=== PATIENT | male | born 1940 | race Caucasian/White ===

== ENCOUNTER 2024-04-17 11:17 | Day surgery (SDC) | payer MEDICARE, SELFPAY ==
[2024-04-17 11:41] VITALS: BP 148/78; PULSE 65; TEMP 36.2; O2SAT 98
[2024-04-17] MEDS: LIDOCAINE 2% JELLY 10 ML UR (15:12)
[2024-04-17 15:13] VITALS: BP 141/74; PULSE 59; O2SAT 99
[2024-04-17 15:15] VITALS: BP 140/81; PULSE 68; O2SAT 99
--- NOTE | 2024-04-17 15:16 | PM.URSON ---
Urology Surgery Operative Note Operative Note Procedure Date: 04/17/24 Time Out Performed: yes Pre-op Diagnosis: Status post left stent placement Post-op Diagnosis: same as pre-op Procedures performed: 1. Cystoscopy. 2. 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 He now presents for cystoscopy and left stent removal. He has signed an informed consent. Detailed description of Procedure: The patient was kept on the [facility] bed and brought to the endoscopy suite. He was in the supine position. Genitalia were sterilely prepped and draped in the usual fashion. 2% lidocaine was passed per urethra. Timeout was done by all parties in the room. We all agreed upon the patient's identification and the planned procedure for this patient. I then started by passing a flexible cystoscope per urethra and into the bladder. The anterior urethra was normal. The prostatic urethra showed bilobar obstruction. Panendoscopy in the bladder showed a non-encrusted stent. He had high-grade trabeculation. A flexible grasping forceps was passed through the scope and the stent was grasped. The scope and stent were then removed. He was then discharged to home.
== END 2024-04-17 15:25 | disposition home or self-care (01) ==
LOC: SURGOUT 11:21
PROVIDERS: PCP Nurse Practitioner Family; Visit Provider Urology
PROC: (CPT 52310; principal; 2024-04-17 12:45)
DX: Z46.6 Encounter for fitting and adjustment of urinary device (principal)
CPT/HCPCS: 52310